=== PATIENT | female | born 1950 | race Caucasian/White ===

== ENCOUNTER 2017-06-19 16:43 | Inpatient (IN) | payer MEDICARE ==
[~2017-06-19] VITALS: Ht 162.6 cm; Wt 93.4 kg
[~2017-06-19 16:43] MED LIST: ARIP10TA14 PO
[2017-06-19] MEDS ORDERED: ZOLPIDEM TARTRATE 10 MG TABLET PO PRN (17:00)
[2017-06-19] MEDS ORDERED: HALOPERIDOL 5 MG TABLET PO PRN (17:00)
[2017-06-19] MEDS ORDERED: LORazepam 2 MG TABLET PO PRN (17:00)
[2017-06-19 17:06] LABS: BASOPHILS % (AUTO) 0.4 % (0.0-2.0); EOSINOPHILS % (AUTO) 1.4 % (1.0-6.0); HEMATOCRIT 39.1 % (36-46); HEMOGLOBIN 13.4 g/dL (12.0-16.0); LYMPHOCYTES # (AUTO) 2.5 K/uL (1.0-4.8); LYMPHOCYTES % (AUTO) 34.2 % (22.0-44.0); MEAN CORPUSCULAR HEMOGLOBIN 30.3 pg (26.0-34.0); MEAN CORPUSCULAR HGB CONC 34.3 G/dL (31.0-37.0); MEAN CORPUSCULAR VOLUME 88 fL (80-100); MONOCYTES # (AUTO) 0.4 K/uL (0.1-1.0); MONOCYTES % (AUTO) 5.7 % (2.0-9.0); NEUTROPHILS # (AUTO) 4.3 K/uL (1.8-7.7); NEUTROPHILS % (AUTO) 58.3 % (40.0-70.0); PLATELET COUNT (AUTO) 274 K/uL (150-450); RED BLOOD CELL COUNT(AUTO) 4.42 MIL/uL (4.00-5.20); RED CELL DISTRIBUTION WIDTH 14.3 % (11.5-14.5); WHITE BLOOD COUNT (AUTO) 7.4 K/uL (4.5-11.0)
[2017-06-19 17:16] LABS: APPEARANCE,URINE CLOUDY (CLEAR); GLUCOSE, URINE (UA) NEGATIVE (NEGATIVE); KETONES,URINE TRACE mg/dL (NEGATIVE); LEUKOCYTE ESTERASE ,URINE LARGE (NEGATIVE); OCCULT BLOOD,URINE TRACE (NEGATIVE); PH,URINE 5.5 (5.0-8.0); PROTEIN,URINE TRACE (NEGATIVE)
[2017-06-19 17:19] LABS: ANION GAP 13 mmol/L (8-16); CALCIUM, TOTAL 9.6 mg/dL (8.8-10.5); CARBON DIOXIDE 24 mmol/L (22-29); CHLORIDE 107 mmol/L (98-107); GLOMERULAR FILTR. RATE CALC > 60 mL/min (>60); POTASSIUM 3.9 mmol/L (3.5-5.1); SODIUM SERUM 144 mmol/L (136-145); UREA NITROGEN, BLOOD 15 mg/dL (7-18)
[2017-06-19 17:23] LABS: ADD UA MICROSCOPIC YES
[2017-06-19 17:24] LABS: SQUAMOUS EPITHELIAL CELL,UR Moderate /LPF (None Seen)
[2017-06-19 17:25] LABS: ALANINE AMINOTRANSFERASE 30 U/L (12-78); ALBUMIN 4.2 g/dL (3.4-5.0); ASPARTATE AMINOTRANSFERASE 19 U/L (15-37); BILIRUBIN,TOTAL 0.7 mg/dL (0.1-1.0); TOTAL PROTEIN, SERUM 7.3 g/dL (6.4-8.2)
[2017-06-19 17:25] LABS: WBC,URINE 51-100 /HPF (0-5)
[2017-06-19] MEDS ORDERED: NITROFURANTOIN/NITROFURAN MAC 100 MG CAPSULE [MACROBID] PO ONE (17:45)
[2017-06-19 19:08] VITALS: BP 122/65
[2017-06-20] MEDS ORDERED: PNEUMOCOCCAL VACCINE POLYVALENT 0.5 ML VIAL [PPSV23] IM ONE (03:45)
[2017-06-20 06:29] VITALS: BP 125/63
[2017-06-20 08:15] VITALS: BP 126/73
[2017-06-20] MEDS: NITROFURANTOIN/NITROFURAN MAC 100 MG CAPSULE [MACROBID] PO SCH ×2 (08:20→16:22)
[2017-06-20 08:58] LABS: HEMOGLOBIN A1C 5.5 % (4.5-6.2)
[2017-06-20 09:20] LABS: CHOL/HDL RATIO 7.8 (3.9-5.7); THYROID STIMULATING HORMONE 1.56 uIU/mL (0.36-3.74)
[2017-06-20 16:00] VITALS: BP 110/73
[2017-06-20] MEDS: ARIPiprazole 10 MG TABLET PO SCH (20:10)
[2017-06-20] MEDS: SIMVASTATIN 20 MG TABLET PO SCH (20:10)
[2017-06-21 03:55] VITALS: BP 134/67
[2017-06-21 08:10] VITALS: BP 151/86
[2017-06-21] MEDS: NITROFURANTOIN/NITROFURAN MAC 100 MG CAPSULE [MACROBID] PO SCH ×2 (08:32→16:19)
[2017-06-21 11:42] VITALS: BP 148/71
[2017-06-21 16:31] VITALS: BP 138/78
[2017-06-21] MEDS: SIMVASTATIN 20 MG TABLET PO SCH (20:19)
[2017-06-21] MEDS: ARIPiprazole 10 MG TABLET PO SCH (20:19)
[2017-06-22 00:38] VITALS: BP 112/63
[2017-06-22 08:23] VITALS: BP 123/84
[2017-06-22] MEDS: NITROFURANTOIN/NITROFURAN MAC 100 MG CAPSULE [MACROBID] PO SCH ×2 (08:41→16:36)
[2017-06-22] MEDS: RisperiDONE 0.5 MG TABLET PO SCH ×2 (08:41→16:36)
[2017-06-22 16:14] VITALS: BP 140/76
[2017-06-22] MEDS: SIMVASTATIN 20 MG TABLET PO SCH (20:37)
[2017-06-23 01:57] VITALS: BP 134/68
[2017-06-23 08:25] VITALS: BP 120/60
[2017-06-23] MEDS: NITROFURANTOIN/NITROFURAN MAC 100 MG CAPSULE [MACROBID] PO SCH ×2 (09:07→16:34)
[2017-06-23] MEDS: RisperiDONE 1 MG TABLET PO SCH ×2 (09:07→16:34)
[2017-06-23] MEDS: CYANOCOBALAMIN 500 MCG TABLET PO SCH (09:07)
[2017-06-23 16:06] VITALS: BP 116/71
[2017-06-23] MEDS: SIMVASTATIN 20 MG TABLET PO SCH (20:33)
[2017-06-24 02:12] VITALS: BP 140/85
[2017-06-24] MEDS: RisperiDONE 1 MG TABLET PO SCH ×2 (08:41→16:27)
[2017-06-24] MEDS: NITROFURANTOIN/NITROFURAN MAC 100 MG CAPSULE [MACROBID] PO SCH ×2 (08:41→16:27)
[2017-06-24] MEDS: CYANOCOBALAMIN 500 MCG TABLET PO SCH (08:41)
[2017-06-24 08:50] VITALS: BP 122/71
[2017-06-24 16:08] VITALS: BP 121/77
[2017-06-24] MEDS: SIMVASTATIN 20 MG TABLET PO SCH (20:35)
[2017-06-25 06:34] VITALS: BP 113/75
[2017-06-25 07:45] VITALS: BP 117/64
[2017-06-25 08:00] VITALS: BP 117/64
[2017-06-25] MEDS: CYANOCOBALAMIN 500 MCG TABLET PO SCH (08:39)
[2017-06-25] MEDS: NITROFURANTOIN/NITROFURAN MAC 100 MG CAPSULE [MACROBID] PO SCH ×2 (08:39→16:53)
[2017-06-25] MEDS: RisperiDONE 1 MG TABLET PO SCH ×2 (08:39→16:53)
[2017-06-25 16:00] VITALS: BP 120/83
[2017-06-25] MEDS: SIMVASTATIN 20 MG TABLET PO SCH (20:43)
[2017-06-26] VITALS: BP 141/78
[2017-06-26 08:00] VITALS: BP 134/72
[2017-06-26] MEDS: CYANOCOBALAMIN 500 MCG TABLET PO SCH (09:10)
[2017-06-26] MEDS: RisperiDONE 1 MG TABLET PO SCH ×2 (09:10→16:39)
[2017-06-26] MEDS: NITROFURANTOIN/NITROFURAN MAC 100 MG CAPSULE [MACROBID] PO SCH ×2 (09:10→16:39)
[2017-06-26 16:29] VITALS: BP 154/58
[2017-06-26 17:29] VITALS: BP 125/79
[2017-06-26] MEDS: SIMVASTATIN 20 MG TABLET PO SCH (20:34)
[2017-06-27 06:00] VITALS: BP 138/61
[2017-06-27 08:47] VITALS: BP 102/61
[2017-06-27] MEDS: NITROFURANTOIN/NITROFURAN MAC 100 MG CAPSULE [MACROBID] PO SCH (09:30)
[2017-06-27] MEDS: RisperiDONE 1 MG TABLET PO SCH ×2 (09:30→16:32)
[2017-06-27] MEDS: CYANOCOBALAMIN 500 MCG TABLET PO SCH (09:31)
[2017-06-27 16:17] VITALS: BP 122/65
[2017-06-27] MEDS: SIMVASTATIN 20 MG TABLET PO SCH (20:33)
[2017-06-28 06:14] VITALS: BP 112/74
[2017-06-28 08:13] VITALS: BP 124/77
[2017-06-28] MEDS: RisperiDONE 1 MG TABLET PO SCH ×2 (08:37→16:54)
[2017-06-28] MEDS: CYANOCOBALAMIN 500 MCG TABLET PO SCH (08:37)
[2017-06-28 16:17] VITALS: BP 140/70
[2017-06-28] MEDS: SIMVASTATIN 20 MG TABLET PO SCH (20:47)
[2017-06-29 06:27] VITALS: BP 118/66
[2017-06-29 08:29] VITALS: BP 152/90
[2017-06-29] MEDS: RisperiDONE 1 MG TABLET PO SCH ×2 (08:31→16:03)
[2017-06-29] MEDS: CYANOCOBALAMIN 500 MCG TABLET PO SCH (08:32)
[2017-06-29 10:40] VITALS: BP 104/66
[2017-06-29 16:11] VITALS: BP 120/80
[2017-06-29] MEDS: SIMVASTATIN 20 MG TABLET PO SCH (20:06)
[2017-06-30 01:09] VITALS: BP 110/62
[2017-06-30] MEDS: RisperiDONE 1 MG TABLET PO SCH ×2 (08:38→16:40)
[2017-06-30] MEDS: CYANOCOBALAMIN 500 MCG TABLET PO SCH (08:38)
[2017-06-30 09:24] VITALS: BP 115/64
[2017-06-30 16:37] VITALS: BP 128/88
[2017-06-30] MEDS: SIMVASTATIN 20 MG TABLET PO SCH (20:29)
[2017-07-01 01:19] VITALS: BP 102/66
[2017-07-01 08:17] VITALS: BP 123/72
[2017-07-01] MEDS: RisperiDONE 1 MG TABLET PO SCH ×2 (08:22→16:32)
[2017-07-01] MEDS: CYANOCOBALAMIN 500 MCG TABLET PO SCH (08:22)
[2017-07-01 16:10] VITALS: BP 135/75
[2017-07-01] MEDS: SIMVASTATIN 20 MG TABLET PO SCH (20:30)
[2017-07-02] VITALS: BP 134/70
[2017-07-02 08:00] VITALS: BP 119/73
[2017-07-02] MEDS: CYANOCOBALAMIN 500 MCG TABLET PO SCH (08:09)
[2017-07-02] MEDS: RisperiDONE 1 MG TABLET PO SCH ×2 (08:09→16:51)
[2017-07-02 16:01] VITALS: BP 123/73
[2017-07-02] MEDS: SIMVASTATIN 20 MG TABLET PO SCH (20:07)
[2017-07-03 00:25] VITALS: BP 124/74
[2017-07-03] MEDS: RisperiDONE 1 MG TABLET PO SCH ×2 (08:30→16:32)
[2017-07-03] MEDS: CYANOCOBALAMIN 500 MCG TABLET PO SCH (08:30)
[2017-07-03 08:41] VITALS: BP 126/77
[2017-07-03 16:06] VITALS: BP 124/69
[2017-07-03] MEDS: SIMVASTATIN 20 MG TABLET PO SCH (20:34)
[2017-07-04 00:29] VITALS: BP 126/62
[2017-07-04] MEDS: CYANOCOBALAMIN 500 MCG TABLET PO SCH (08:07)
[2017-07-04] MEDS: RisperiDONE 1 MG TABLET PO SCH ×2 (08:07→16:30)
[2017-07-04 08:20] VITALS: BP 149/80
[2017-07-04 16:11] VITALS: BP 128/75
[2017-07-04] MEDS: SIMVASTATIN 20 MG TABLET PO SCH (20:35)
[2017-07-05 06:14] VITALS: BP 128/73
[2017-07-05 08:17] VITALS: BP 127/74
[2017-07-05] MEDS: CYANOCOBALAMIN 500 MCG TABLET PO SCH (08:20)
[2017-07-05] MEDS: RisperiDONE 1 MG TABLET PO SCH (08:20)
[2017-07-05] MEDS ORDERED: RISP1 PO (13:03)
[2017-07-05] MEDS ORDERED: CYAN500 PO (13:03)
[2017-07-05] MEDS ORDERED: SIMV-260 PO (13:03)
== END 2017-07-05 15:45 | DRG 885 ==
LOC: EMS 16:45 → B2X 17:56
PROVIDERS: ADMIT Psychiatry & Neurology Psychiatry; ATTEND Psychiatry & Neurology Psychiatry
PROC: 3E0234Z Introduction of Serum, Toxoid and Vaccine into Muscle, Percutaneous Approach (ICD-10-PCS; principal; 2017-06-20)
DX: F29 Unspecified psychosis not due to a substance or known physiological condition (principal); G93.89 Other specified disorders of brain; F02.80 Dementia in other diseases classified elsewhere, unspecified severity, without behavioral disturbance, psychotic disturbance, mood disturbance, and anxiety; G31.09 Other frontotemporal neurocognitive disorder; N39.0 Urinary tract infection, site not specified; F20.0 Paranoid schizophrenia; G31.01 Pick's disease; F32.9 Major depressive disorder, single episode, unspecified; Z79.899 Other long term (current) drug therapy; Z23 Encounter for immunization; Z90.710 Acquired absence of both cervix and uterus
CPT/HCPCS: 70450; 82607; 82746; 83036; 84439; 84443; 87081; 87086; 99285; G0480